=== PATIENT | male | born 1980 | race Two or more races ===

== ENCOUNTER 2020-02-23 15:02 | Outpatient (REF) | payer OTHER, SELFPAY | END 2020-02-23 15:03 | disposition home or self-care (01) | LOC: HO.LAB 15:02 | PROVIDERS: Visit Provider Internal Medicine | DX: Z20.828 Contact with and (suspected) exposure to other viral communicable diseases (principal) | CPT/HCPCS: C9803; U0003 ==

== ENCOUNTER 2020-06-04 07:47 | Outpatient (REF) | payer OTHER, SELFPAY | END 2020-06-04 07:48 | disposition home or self-care (01) | LOC: HO.LAB 07:47 | PROVIDERS: Visit Provider Internal Medicine | DX: Z20.822 Contact with and (suspected) exposure to COVID-19 (principal) | CPT/HCPCS: 36415; C9803; U0003; U0005 ==

== ENCOUNTER 2020-06-20 07:35 | Outpatient (REF) | payer OTHER, SELFPAY | END 2020-06-20 07:36 | disposition home or self-care (01) | LOC: HO.LAB 07:35 | PROVIDERS: Visit Provider Internal Medicine | DX: Z20.822 Contact with and (suspected) exposure to COVID-19 (principal) | CPT/HCPCS: 36415; C9803; U0003; U0005 ==

== ENCOUNTER 2021-05-29 14:51 | Outpatient (REF) | payer OTHER, SELFPAY ==
[2021-05-29 15:11] LABS: COVID-19 Test Negative (Negative)
== END 2021-05-29 14:52 | disposition home or self-care (01) ==
LOC: HO.LAB 14:51
PROVIDERS: Visit Provider Internal Medicine
DX: Z20.822 Contact with and (suspected) exposure to COVID-19 (principal)
CPT/HCPCS: 87635; C9803